=== PATIENT | male | born 2000 | race Caucasian/White ===

== ENCOUNTER 2021-12-17 11:06 | Inpatient (IN) ==
[2021-12-17 11:59] LABS: ABS Eosinophils 0.1 10^3/ul (0-0.6); ABS Monocytes 0.4 10^3/ul (0-0.8); ABS Neutrophils 3.5 10^3/ul (1.5-7.7); Eosinophil % 1.3 %; Hematocrit 43 % (42-52); Hemoglobin 14.8 g/dL (14.0-18.0); Lymphocyte % 33.4 %; Mean Corpuscular HGB Conc 34 g/dL (31-36); Mean Corpuscular Hemoglobin 32 pg (27-31); Mean Corpuscular Volume 92 fL (80-94); Mean Platelet Volume 7.1 fL (7.4-10.4); Nucleated Red Blood Cells % 0.4; Platelet Count 219 10^3/uL (150-450); Red Blood Count 4.68 10^6 /uL (4.18-5.48); Red Cell Distribution Width 13 % (10-15)
[2021-12-17 12:39] LABS: ALT 14 U/L (7-52); AST 14 U/L (13-39); Acetaminophen < 15 mcg/mL; Albumin 4.4 g/dL (3.2-5.2); Albumin/Globulin Ratio 1.7 (1-3); Alcohol, S < 13 mg/dL (<13); Alkaline Phosphatase 55 U/L (35-149); Anion Gap 5 mmol/L (2-11); Blood Urea Nitrogen 12 mg/dL (6-24); CO2 Carbon Dioxide 28 mmol/L (22-32); Calcium 9.5 mg/dL (8.6-10.3); Chloride 105 mmol/L (101-111); Globulin 2.6 g/dL (2-4); Glucose 103 mg/dL (70-100); Potassium 4.4 mmol/L (3.5-5.0); Salicylate < 2.50 mg/dL (<30); Sodium 138 mmol/L (135-145); eGFR CKD-EPI 102.4 (>60)
[2021-12-17 12:52] LABS: TSH Ultra Thyroid Stim Horm 1.04 mcIU/mL (0.34-5.60)
[2021-12-17] MEDS ORDERED: Nicotine PATCH 14 MG/24 HR PATCH TRANSDERM ONE (13:51)
[2021-12-17] MEDS ORDERED: Al Hydrox/Mg Hydrox/Simet LIQ 30 ML UDC PO PRN (14:05)
[2021-12-17 14:47] LABS: Urine Benzodiazepine Screen None Detected (None Detect); Urine Cannabinoids Screen Presumptive Positive (None Detect); Urine Opiates Screen None Detected (None Detect)
[2021-12-17 14:50] LABS: Urine Color Yellow
[2021-12-17 14:51] LABS: Urine Appearance Clear; Urine Bilirubin Negative (Negative); Urine Blood Negative (Negative); Urine Glucose Negative (Negative); Urine Ketones Negative (Negative); Urine Nitrite Negative (Negative); Urine Protein Negative (Negative); Urine Specific Gravity 1.015 (1.005-1.030); Urine Urobilinogen 0.2 (Negative) (Negative)
[2021-12-17] MEDS ORDERED: Nicotine GUM 4MG FRUIT FLAVOR PO ONE (21:09)
[2021-12-18] MEDS: Nicotine GUM 4MG FRUIT FLAVOR PO PRN ×4 (07:48→19:04)
[2021-12-18 08:18] LABS: HDL Cholesterol 30.2 mg/dL
[2021-12-19] MEDS: Nicotine PATCH 21 MG/24 HR PATCH TRANSDERM SCH (07:36)
[2021-12-19] MEDS: Nicotine GUM 4MG FRUIT FLAVOR PO PRN ×3 (07:38→14:15)
[2021-12-20] MEDS: Nicotine PATCH 21 MG/24 HR PATCH TRANSDERM SCH (07:51)
[2021-12-20] MEDS: Nicotine GUM 4MG FRUIT FLAVOR PO PRN ×3 (11:50→19:16)
[2021-12-20 21:44] VITALS: BP 146/91
[2021-12-21] MEDS: Nicotine GUM 4MG FRUIT FLAVOR PO PRN (06:36)
[2021-12-21] MEDS: Nicotine PATCH 21 MG/24 HR PATCH TRANSDERM SCH (07:58)
== END 2021-12-21 09:31 | disposition home or self-care (01) | DRG 754 ==
LOC: ED 11:06 → EDHOLD 14:05 → BSU 16:41 → EDHOLD 16:48
PROVIDERS: ADMIT Psychiatry & Neurology Psychiatry; ATTEND Psychiatry & Neurology Psychiatry